=== PATIENT | male | born 1975 ===

== ENCOUNTER 2021-02-14 09:38 | Emergency (ER) | payer BC ==
--- NOTE | 2021-02-14 11:04 | EDM.PDOC ---
ED HPI GENERAL MEDICAL PROBLEM - General Chief Complaint: Upper Extremity Injury/Pain Stated Complaint: shoulder pain/dislocation Time Seen by Provider: 02/14/21 09:55 Source of Information: Reports: Patient History Limitations: Reports: No Limitations - History of Present Illness INITIAL COMMENTS - FREE TEXT/NARRATIVE: Pt. presents to ER with complaints of R shoulder pain. He states that he fell down 3 stairs last night, injuring his R shoulder. Denies striking his head. No neck pain. Pt. states that since the injury, he has been experiencing R anterior shoulder pain and a "lump" in the area of his distal collarbone. Denies any previous injury to this area. Denies any chest/abdomen/pelvic pain. No other extremity discomfort reported. Onset: Today Location: Reports: Upper Extremity, Right Quality: Reports: Ache Severity: Moderate Right Shoulder Pain Score (Numeric/FACES): 2 - Related Data Allergies Allergy/AdvReac Type Severity Reaction Status Date / Time No Known Allergies Allergy Verified 02/14/21 09:50 Home Meds: Home Meds . [No Known Home Meds] 02/14/21 [History] Past Medical History Musculoskeletal History: Reports: Fracture Psychiatric History: Reports: None - Past Surgical History GI Surgical History: Reports: Appendectomy Social & Family History - Tobacco Use Tobacco Use Status *Q: Current Every Day Tobacco User Years of Tobacco use: 20 Packs/Tins Daily: 0.5 Review of Systems - Review of Systems Review Of Systems: Comprehensive ROS is negative, except as noted in HPI. ED EXAM, GENERAL - Physical Exam Exam: See Below Exam Limited By: No Limitations General Appearance: Alert, WD/WN, No Apparent Distress Eye Exam: Bilateral Eye: EOMI, PERRL Nose: Normal Inspection, No Blood Throat/Mouth: Normal Lips, Normal Voice, No Airway Compromise Head: Atraumatic, Normocephalic Neck: Normal Inspection, Supple, Non-Tender, Full Range of Motion. No: Limited Range of Motion, Tender Lateral, Tender Midline Peripheral Pulses: 4+: Radial (L), Radial (R) (Male) Exam: Deferred Rectal (Males) Exam: Deferred Back Exam: Normal Inspection, Full Range of Motion Extremities: Normal Capillary Refill, Limited Range of Motion, Other (Deformity noted in area of R AC joint. ROM is diminished. CMS intact.) Neurological: Alert, Oriented, CN II-XII Intact, Normal Cognition, Normal Gait, Normal Reflexes, No Motor/Sensory Deficits Psychiatric: Normal Affect, Normal Mood Skin Exam: Warm, Dry, Intact Course - Vital Signs Last Recorded V/S: Last Vital Signs Temp 37.6 C 02/14/21 09:40 Pulse 99 02/14/21 09:40 Resp 18 02/14/21 09:40 BP 126/88 02/14/21 09:40 Pulse Ox 97 02/14/21 09:40 - Orders/Labs/Meds Orders: Active Orders 24 hr Category Date Time Status Shoulder Comp Rt [CR] Stat Exams 02/14/21 10:05 Taken - Radiology Interpretation Free Text/Narrative:: AC joint separation noted on x-ray. No shoulder dislocation noted. Departure - Departure Time of Disposition: 10:30 Disposition: Home, Self-Care 01 Clinical Impression: Acromioclavicular joint separation - Discharge Information Instructions: Acromioclavicular Separation Rehab-SportsMed, Acromioclavicular Separation Referrals: PCP,None [Primary Care Provider] - Forms: ED Department Discharge Additional Instructions: Use sling. Recheck in clinic in 10-14 days. Ibuprophen (advil) 200mg 3 tabs every 6 hours as needed for pain acetaminophen 650mg 1 every 4 hours if the ibuprofen is not working Sepsis Event Note (ED) - Evaluation Sepsis Screening Result: No Definite Risk - Focused Exam Vital Signs: Vital Signs Temp Pulse Resp BP Pulse Ox 02/14/21 09:40 37.6 C 99 18 126/88 97 - Problem List Review Problem List Initiated/Reviewed/Updated: Yes - My Orders Last 24 Hours: My Active Orders 02/14/21 10:05 Shoulder Comp Rt [CR] Stat - Assessment/Plan Last 24 Hours: My Active Orders 02/14/21 10:05 Shoulder Comp Rt [CR] Stat Plan: Use sling. Recheck in clinic in 10-14 days. Ibuprophen (advil) 200mg 3 tabs every 6 hours as needed for pain acetaminophen 650mg 1 every 4 hours if the ibuprofen is not working
== END 2021-02-14 10:35 | disposition home or self-care (01) ==
LOC: LL.ED 09:38
DX: S43.101A Unspecified dislocation of right acromioclavicular joint, initial encounter (principal); Z72.0 Tobacco use; W10.9XXA Fall (on) (from) unspecified stairs and steps, initial encounter
CPT/HCPCS: 73030-RT; 99283; 99283-25